=== PATIENT | male | born 1945 | race American Indian/Alaskan Native ===

== ENCOUNTER → 2017-12-05 | Outpatient (CLI) | payer OTHER, BC ==
[~2017-12-05] MED LIST: AMLODIPINE-BEN1 EAC3; AZITHROMYCIN 2250 MG PO; GLUCOPHAGE500 MG; KAPVAY0.1 MG; LOPRESSOR100 MG; VICODIN 5-5001 EACH PO
== END ==
LOC: SLEEPLAB 10:03
DX: G47.33 Obstructive sleep apnea (adult) (pediatric) (principal)

== ENCOUNTER → 2018-08-20 | Outpatient (CLI) | payer OTHER, BC ==
--- NOTE | 2018-08-22 16:01 | SLE ---
[facility] [place] [address] [place] [address] POLYSOMNOGRAPHY STUDY Name: ARMIDA ROBERT Room #: REG Domonique Gonzalez.#: [id number] Admission: 08/20/18 Attend Phys: Nadir Vale MD Discharge: Date of : 49 Report #: [id number] THIS REPORT FOR: //name// CC: Nadir Wilkinson MD DATE OF SERVICE: 08/20/2018 SLEEP STUDY ATTENDING PHYSICIAN: Ramon Wilkinson MD. The patient is 73 years old who weighs 210 pounds with a BMI of 36. The patient's Eldorado score was 12 out of a maximum of 24. The patient had a previous sleep study and was found to have mild JEREL with an AHI of 5.9 per hour with a REM AHI of 15.7 per hour. As he was clinically symptomatic, he was referred back for CPAP titration study performed by [facility]. During the night study, the patient spent 453 minutes in bed and slept for 426 minutes with a sleep efficiency of 94%. Sleep latency was 7.4 minutes with a REM latency of 393 minutes, which is prolonged. Overall, sleep architecture showed normal stage 1 sleep, increased stage 2 sleep, normal slow wave and reduced REM sleep, which was 2.2% of the total sleep time. EKG monitoring revealed an average heart rate of 54 beats per minute.Frequent PVC's were seen throughout the study but no sustained arrhythmias seen. Maximum heart rate was 75 beats per minute. PLMS were seen at an index of 4.9 per hour and 0.3 per hour caused EEG arousals. The patient was started on CPAP at a pressure of 5 cm water and titrated up to 9 cm water. At the final pressure, the patient slept for 259 minutes. The patient had supine as well as REM sleep. The patient's AHI was reduced to 0 per hour and oxygen saturation remained above 94%. IMPRESSION: 1. Mild sleep apnea diagnosed by previous sleep study. 2. No clinically significant periodic limb movements of sleep. 3. Abnormal EKG with frequent PVC's. RECOMMENDATIONS: 1. CPAP at 9 cm water completely eliminated the patient's sleep apnea and should be used on a nightly basis. 2. Follow up in 4-6 weeks to assess compliance with CPAP and to document clinical improvement. [address] [address] POLYSOMNOGRAPHY STUDY Name: YESICA,JAMES Room #: REG [id number] Admission: 08/20/18 Attend Phys: Nadir Vale MD Discharge: Date of : 49 Report #: [id number] 3. Weight loss is strongly advised. 4. 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 5. Cautioned regarding driving until symptoms of sleep apnea resolve with the use of CPAP. <ELECTRONICALLY SIGNED> By: Nadir Vale MD 08/22/18 1601 1525 1539 Nadir Vale MD /brenda
== END ==
LOC: SLEEPLAB 08-14 16:14
DX: G47.30 Sleep apnea, unspecified (principal); R94.31 Abnormal electrocardiogram [ECG] [EKG]; I49.3 Ventricular premature depolarization

== ENCOUNTER → 2019-01-29 | Outpatient (CLI) | payer OTHER, BC ==
--- NOTE | 2019-01-30 16:43 | 24HR ---
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 The study duration was 24 hours and the technical quality is good. Predominant rhythm sinus bradycardia at an average heart rate of 55 bpm, range 41-94 bpm. Longest RR interval 2.1 seconds. 2. Occasional isolated atrial premature complexes, some of which are blocked. No episodes of atrial fibrillation or atrial flutter. Occasional Mobitz type I heart block (Wenckebach) occurring during sleeping hours. No episodes of high-grade heart block. 3. Occasional, isolated premature ventricular complexes, occasional ventricular bigeminy. PVC burden 1.2%. No episodes of ventricular tachycardia. One ventricular couplet. 4. No diary accompanied the study. Electronically Signed On 01-30-2019 16:43:42 CDT by Ludwig Tang [email or web address] ��������������������������������������������� <ELECTRONICALLY SIGNED> ���������������������������������������� By: Ludwig Tang MD, [facility] ��������������������������������������������� 01/30/19 1643 1347 1347 Ludwig Tang MD, [facility] /EPI
== END ==
LOC: CV 09:37
DX: I49.3 Ventricular premature depolarization (principal); I10 Essential (primary) hypertension; E11.9 Type 2 diabetes mellitus without complications

== ENCOUNTER 2019-02-02 08:26 | Emergency (ER) | payer OTHER, BC ==
[~2019-02-02] VITALS: Ht 162.6 cm; Wt 90.7 kg
[2019-02-02 10:30] VITALS: BP 154/82
== END 2019-02-02 10:31 | disposition home or self-care (01) ==
LOC: ER 08:26
DX: S00.12XA Contusion of left eyelid and periocular area, initial encounter (principal); I10 Essential (primary) hypertension; E11.9 Type 2 diabetes mellitus without complications; W18.39XA Other fall on same level, initial encounter; Y92.002 Bathroom of unspecified non-institutional (private) residence as the place of occurrence of the external cause; Y93.89 Activity, other specified; Y99.8 Other external cause status

== ENCOUNTER → 2019-03-26 | Outpatient (CLI) | payer OTHER, BC ==
[~2019-03-26] VITALS: Ht 162.6 cm; Wt 90.7 kg
[~2019-03-26] MED LIST changes: +GLUCOTROL5 MG PO; +JANUVIA100 MG PO
[2019-03-26 06:53] VITALS: BP 146/67
[2019-03-26 07:40] LABS: HEMOGLOBIN 12.2 gm/dL (14.0-18.0); MCH 29.3 pg (26.0-34.0); MCHC 33.9 g/dL (28.0-37.0); MCV 86.4 fL (80.0-100.0); RBC 4.17 mil/uL (4.50-6.00); RDW 14.5 % (10.5-14.5); WBC 8.1 thou/uL (4.0-11.0)
[2019-03-26 07:53] LABS: CALCIUM 8.7 mg/dL (8.5-10.1); CREATININE 1.7 mg/dL (0.7-1.3); POTASSIUM 3.2 mmol/L (3.5-5.1)
--- NOTE | 2019-03-26 10:17 | NUR ---
PT RETURNED TO CV HOLDING POST PROCEDURE. HEMATOMA PRESENT, AND HAD DECREASED FROM MARKED SITE PRIOR TO ARRIVING TO HOLDING. PT DENIES COMPLAINTS. AAOX4, SPEAKING IN COMPLETE SENTENCES,UNABLE TO ASSESS GAIT. SKIN PWD, NAD NOTED. ON MONITOR. FAMILY TO BEDSIDE. PROVIED WITH WATER, MEAL TRAY ORDERED. UPDATED ON POC, WILL CONTINUE TO MONITOR.
--- NOTE | 2019-03-26 17:53 | CATHLAB ---
[facility] [address] [place] [address] INVASIVE PROCEDURE REPORT Name: ARMIDA ROBERT 3RD Room #: REG [place]#: [id number] ������������� Admission: 03/26/19 ������������� Attend Phys: Alonso Wall, Discharge: ��� ������������� ��� Date of : 49 Date of Service: 03/26/19 1753 �� Report #: [id number] �������� ��������������������������������������������[id number] THIS REPORT FOR: //name// APPROVED REPORT Study performed: 03/26/2019 08:52:13 Patient Details Patient Status: Out-Patient Room #: The patient is a 73 year-old male Event Personnel Alonso Wall Financial Systems Analyst, Johanna Parham RN, Sasha Wang RN RN, Alberto Mclaughlin RTR Jami, Michael Fletcher RTR Monitor Procedures Performed Art Access - R femoral artery* Left Heart Cath w/or w/o Coronaries [id number] [facility] Renal Bilateral Peripheral Angiography [id number] CVRENALBIL 14670 Initial Mod Sed Same Phys/QHP Gr5y 056823 24842 Mod Sed Same Phys/QHP Ea [id number] Hemostasis w/ Mynx Indication Chest pain Procedure Narrative The Right Groin^ was infiltrated with 1% Lidocaine subcutaneous anesthesia. A PINNACLE 6FR Sheath #[id number] sheath was inserted into the . Coronary angiography was performed using coronary diagnostic catheters. The right coronary system was accessed and visualized with a JR4 catheter. The left coronary system was accessed and visualized with a JL4 catheter. The left ventricle was accessed and visualized with a pigtail catheter. Left ventriculogram was performed in 30 degree projection. Pre-demployment femoral angiogram was performed . Closure device was deployed with a Fr MYNX CONTROL 6F/7F #[id number]. Hemostasis was obtained with manual pressure following sheath removal without any complications. The patient tolerated the procedure well and there were no complications associated with the procedure. A hematoma occurred. Intraoperative Conscious Sedation Sedation start time: 9:02 Case end Time: 9:57 Fentanyl 50 mcg Versed 1 mg [address] [place] [address] INVASIVE PROCEDURE REPORT Name: YESICAARMIDA CHISHOLM [facility] Room #: [facility]CarlitaCarlita#: [id number] ������������� Admission: 03/26/19 ������������� Attend Phys: Alonso Wall, Discharge: ��� ������������� ��� Date of : 49 Date of Service: 03/26/19 1753 �� Report #: [id number] �������� ��������������������������������������������[id number] Fluoro Time: 1.55 minutes Dose: DAP 3506.00 cGycm2 422 mGy Contrast Type and Amount: Visipaque 155 ml Hemodynamics The aortic pressure is 166/67 mmHg with a mean of 102 mmHg. The left ventricular pressure is 172/9 mmHg with a mean of mmHg. The left ventricular end diastolic pressure is 21 mmHg. Conclusion #1 hyperdynamic LV function EF 65% #2 left main mildly calcified giving rise to LAD and circumflex no occlusive disease #3 LAD extends around the apex there is a 70-80% distal lesion as it bends around the inferior apex, (would treat this medically) #4 circumflex OM mild irregularities #5 there appears to be a ramus branch here with also mild disease. 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 The nuclear stress test is abnormal at the inferior apex because of the lesion in the distal LAD. Would not intervene in this segment but treat medically. ��������������������������������������������� <ELECTRONICALLY SIGNED> ���������������������������������������� By: Alonso Wall MD, FACC ��������������������������������������������� 03/26/191752 52 52 Alonso Wall MD, FACC /INF
== END | disposition home or self-care (01) ==
LOC: CATH 06:24
PROVIDERS: Internal Medicine Cardiovascular Disease
DX: I25.10 Atherosclerotic heart disease of native coronary artery without angina pectoris (principal); I70.1 Atherosclerosis of renal artery; I10 Essential (primary) hypertension; E11.9 Type 2 diabetes mellitus without complications; E78.00 Pure hypercholesterolemia, unspecified; Z79.899 Other long term (current) drug therapy; E78.5 Hyperlipidemia, unspecified; Z98.890 Other specified postprocedural states

== ENCOUNTER → 2019-03-28 | Outpatient (CLI) | payer OTHER | LOC: CAT 08:07 | DX: Z13.6 Encounter for screening for cardiovascular disorders (principal); Z82.49 Family history of ischemic heart disease and other diseases of the circulatory system ==

== ENCOUNTER 2019-05-07 22:39 | Emergency (ER) | payer OTHER, BC ==
[~2019-05-07] VITALS: Ht 162.6 cm; Wt 89.8 kg
[2019-05-07 23:54] LABS: ABSOLUTE NEUTROPHILS 6.3 thou/uL (1.4-8.2); EOSINOPHILS 2.5 % (0.0-3.0); HEMATOCRIT 43.4 % (42.0-52.0); HEMOGLOBIN 14.1 gm/dL (14.0-18.0); LYMPHOCYTES 35.7 % (24.0-44.0); MCH 28.6 pg (26.0-34.0); MCHC 32.6 g/dL (28.0-37.0); MCV 87.7 fL (80.0-100.0); MONOCYTES 9.9 % (1.0-8.0); PLATELET COUNT 265 thou/uL (150-400); POLYS 50.9 % (36.0-66.0); RBC 4.94 mil/uL (4.50-6.00); RDW 14.9 % (10.5-14.5); WBC 12.4 thou/uL (4.0-11.0)
[2019-05-08 00:16] LABS: CALCIUM 9.6 mg/dL (8.5-10.1); CREATININE 2.1 mg/dL (0.7-1.3); POTASSIUM 3.8 mmol/L (3.5-5.1)
[2019-05-08 01:07] VITALS: BP 165/85
== END 2019-05-08 01:08 | disposition home or self-care (01) ==
LOC: ER 22:39
PROVIDERS: Emergency Medicine
DX: R51 Headache (principal); I10 Essential (primary) hypertension; E11.9 Type 2 diabetes mellitus without complications; E78.00 Pure hypercholesterolemia, unspecified

== ENCOUNTER → 2019-09-24 | Outpatient (CLI) | payer OTHER, BC | LOC: SJCVC 15:33 | DX: R00.1 Bradycardia, unspecified (principal); I25.10 Atherosclerotic heart disease of native coronary artery without angina pectoris; E78.00 Pure hypercholesterolemia, unspecified; I10 Essential (primary) hypertension; E11.9 Type 2 diabetes mellitus without complications; Z79.82 Long term (current) use of aspirin; Z79.84 Long term (current) use of oral hypoglycemic drugs; Z79.899 Other long term (current) drug therapy ==

== ENCOUNTER → 2020-04-21 | Outpatient (CLI) | payer OTHER, BC | LOC: SJCVC 13:01 | PROVIDERS: ATTEND Internal Medicine Cardiovascular Disease | DX: R94.31 Abnormal electrocardiogram [ECG] [EKG] (principal); E11.9 Type 2 diabetes mellitus without complications; R00.1 Bradycardia, unspecified; I70.1 Atherosclerosis of renal artery; I44.0 Atrioventricular block, first degree; I25.10 Atherosclerotic heart disease of native coronary artery without angina pectoris; I10 Essential (primary) hypertension; E78.00 Pure hypercholesterolemia, unspecified; Z79.899 Other long term (current) drug therapy ==

== ENCOUNTER → 2020-12-07 | Outpatient (CLI) | payer OTHER, BC | LOC: SJCVCIMAG 07:47 | PROVIDERS: ATTEND Internal Medicine Cardiovascular Disease | DX: I49.3 Ventricular premature depolarization (principal); I25.10 Atherosclerotic heart disease of native coronary artery without angina pectoris; E78.00 Pure hypercholesterolemia, unspecified; I10 Essential (primary) hypertension; E11.9 Type 2 diabetes mellitus without complications; R00.1 Bradycardia, unspecified; E78.5 Hyperlipidemia, unspecified; I73.9 Peripheral vascular disease, unspecified; Z79.82 Long term (current) use of aspirin; Z79.84 Long term (current) use of oral hypoglycemic drugs; Z79.899 Other long term (current) drug therapy ==

== ENCOUNTER → 2021-03-22 | Outpatient (CLI) | payer OTHER, BC | LOC: SJCVC 15:20 | PROVIDERS: ATTEND Internal Medicine Cardiovascular Disease | DX: R94.31 Abnormal electrocardiogram [ECG] [EKG] (principal); I25.10 Atherosclerotic heart disease of native coronary artery without angina pectoris; I10 Essential (primary) hypertension; E78.00 Pure hypercholesterolemia, unspecified; E11.9 Type 2 diabetes mellitus without complications; Z79.82 Long term (current) use of aspirin; Z79.84 Long term (current) use of oral hypoglycemic drugs; Z79.899 Other long term (current) drug therapy ==